=== PATIENT | male | born 1965 | race Caucasian/White ===

== ENCOUNTER 2016-07-09 08:21 | Day surgery (SDC) | payer OTHER ==
[2016-07-08 13:12] VITALS: BMI 37.0
[2016-07-09] VITALS (8 sets, daily range): BP systolic 118–140; BP diastolic 52–97; PULSE 16–88; RESP 16–18; Ht 172.7 cm; Wt 107.0 kg
[~2016-07-09] VITALS: Ht 172.7 cm; Wt 107.0 kg
--- NOTE | 2016-07-09 06:59 | HPN ---
Date/Time of Note Date/Time of Note DATE: 07/09/16 TIME: 06:59 Interval H&P Admission Note Pt. seen H&P reviewed: No system changes PAVITHRA CUNNINGHAM MD Jul 09, 2016 06:59
[~2016-07-09 08:21] MED LIST: GLYCOPYRROLATE 1 MG INJ ONE; NEOSTIGMINE 3 MG/3 ML SYRINGE ONE
[2016-07-09] MEDS ORDERED: AMLO1CAP14 PO (08:58)
[2016-07-09] MEDS ORDERED: BUPIVACAINE 0.25% (MPF) 30 ML INJ ONE ×2 (10:13→11:21)
[2016-07-09] MEDS ORDERED: MIDAZOLAM 1 MG/ML 2 ML INJ ONE (10:23)
[2016-07-09] MEDS ORDERED: FENTAnyl 50 MCG/ML VIAL IV PRN (10:30)
[2016-07-09] MEDS ORDERED: hydrALAzine 20 MG INJ IV PRN (10:30)
[2016-07-09] MEDS ORDERED: LABETALOL HCL 20MG INJ IV PRN (10:30)
[2016-07-09] MEDS ORDERED: DIPHENHYDRAMINE 50 MG INJ IV PRN (10:30)
[2016-07-09] MEDS ORDERED: ONDANSETRON 4 MG INJ IV PRN ×2 (10:30→12:00)
[2016-07-09] MEDS ORDERED: MEPERIDINE 25 MG INJ IV PRN (10:30)
[2016-07-09] MEDS ORDERED: HYDROmorphONE (0.2 MG/ML) 10ML SYG IV PRN ×2 (10:30)
[2016-07-09] MEDS ORDERED: morphine 10 MG INJ ONE (11:14)
[2016-07-09] MEDS ORDERED: BUPIVACAINE 0.25% (MPF) 10 ML 10 ML VIAL ONE (11:20)
[2016-07-09] MEDS ORDERED: BUPIVACAINE 0.25% (MPF) 30 ML INJ INJ ONE (11:35)
[2016-07-09] MEDS ORDERED: ONDANSETRON 4 MG INJ ONE (11:41)
[2016-07-09] MEDS ORDERED: METOCLOPRAMIDE 10 MG INJ ONE (11:41)
[2016-07-09] MEDS ORDERED: ROCURONIUM 50 MG INJ ONE (11:45)
[2016-07-09] MEDS ORDERED: LIDOCAINE 2% (SDV) 5 ML INJ ONE (11:45)
[2016-07-09] MEDS ORDERED: CEFAZOLIN 1 GM INJ ONE (11:45)
[2016-07-09] MEDS ORDERED: PROPOFOL 40 ML ONE (11:45)
[2016-07-09] MEDS ORDERED: morphine 2 MG INJ IV PRN (12:00)
[2016-07-09] MEDS ORDERED: OXYCODONE/ACETAMINOPHEN (5/325) TAB PO PRN ×2 (12:00)
--- NOTE | 2016-07-09 12:35 | OPR ---
DATE OF OPERATION: 07/09/2016 PREOPERATIVE DIAGNOSIS: Bilateral inguinal hernia without obstruction. POSTOPERATIVE DIAGNOSIS: Bilateral inguinal hernia without obstruction (bilateral direct). OPERATION PERFORMED: 1. Repair right inguinal hernia with extra-large plug. 2. Repair left inguinal hernia with extra-large plug. 3. Right inguinal nerve block. 4. Left inguinal nerve block. SURGEON: Pavithra Chavez MD. ANESTHESIA: General. ANESTHESIOLOGIST: Adam Moe MD OPERATIVE REPORT: After satisfactory general anesthesia was achieved, the abdomen was prepped and d raped in the usual fashion. The right inguinal hernia was repaired first. A 5 cm transverse suprapu bic right groin incision was made and carried down to the level of the external oblique, which was o pened in the direction of its fibers. The cord and nerve were retracted and preserved. There was n o indirect sac. There was a large direct inguinal hernia. This was dissected circumferentially and reduced. The reduction was maintained by placement of an extra-large plug secured circumferentiall y to healthy fascia with interrupted 3-0 Vicryl suture. Next, the flat portion of the mesh was anch ored at the pubic tubercle with 0 Novafil, laterally to inguinal ligament with interrupted 0 Novafil , and medially to the conjoined tendon with interrupted 0 Novafil suture. The mesh distal to the co rd was reconstituted with a single suture of 0 Novafil creating a new internal ring of appropriate s ize. The cord and nerve were then replaced beneath the external oblique, which was closed with a ru nning 3-0 Vicryl suture. Next, a right inguinal nerve block was performed. Ten mL of 0.25% plain M arcaine were injected into the fascia 1 cm medial and inferior to the right anterior iliac spine. T en more mL of local anesthetic were injected directly into the wound. Hugo's fascia was closed wi th interrupted 3-0 Vicryl suture and skin closed with running 4-0 subcuticular Vicryl. Next, a mirror image incision was made in the left groin and carried down to the external oblique. Findings on the left were identical to that on the right. The repair performed on the left was iden tical to that as described on the right above. The nerve block was performed in identical fashion o n the left. Total operative blood loss less than 20 mL. Sponge and needle counts were reported as correct x2. The patient tolerated the procedure well and without incident or complication. Dictated By: PAVITHRA VALLES/NAWAF Conf#: [id number] DID#: [id number] CC: JORGE MONTES MD;*EndCC*
== END 2016-07-09 13:56 | disposition home or self-care (01) ==
LOC: SDS 08:21
PROVIDERS: ATTEND Surgery
DX: K40.20 Bilateral inguinal hernia, without obstruction or gangrene, not specified as recurrent (principal); I10 Essential (primary) hypertension; E66.01 Morbid (severe) obesity due to excess calories; Z68.35 Body mass index [BMI] 35.0-35.9, adult
CPT/HCPCS: 49505; C1781; J0690; J2250; J2270; J2405; J2710; J2765; J3010; Z7512; Z7610